=== PATIENT | male | born 1990 | race Hispanic/Latino ===

== ENCOUNTER 2018-08-09 00:13 | Inpatient (IN) | payer BC ==
[2018-08-09] MEDS ORDERED: Tdap Vaccine 0.5 ml Vial (10-64 yrs) IM ONE ×2 (01:05→01:12)
[2018-08-09] MEDS ORDERED: Lidocaine 1.5%-Epinephrine 1:200,000 5 ML AMP IJ STA (01:16)
[2018-08-09] MEDS ORDERED: Lidocaine 1% w Epi 1:100,000 Inj ONE (01:24)
[2018-08-09] MEDS ORDERED: Lidocaine 1% w Epi 1:100,000 Inj IJ STA (01:27)
--- NOTE | 2018-08-09 01:36 | ED PDOC ---
HPI: Wound Care - HPI Time Seen by Provider: 08/09/18 00:45 Chief Complaint (Nursing): Psychiatric Evaluation Chief Complaint (Provider): psych eval History Per: Patient, EMS History Of Present Illness: 27 y/o male brought in by EMS for psych evaluation. Patient admits to drinking alcohol tonight; states he used a razor blade to cut his forearm and that it was "premeditated". Patient states this is not the first time he has done this. HPI limited due to patient's current state Past Medical History Reviewed: Historical Data, Nursing Documentation, Vital Signs Vital Signs: Last Vital Signs Temp 98.0 F 08/09/18 00:15 Pulse 122 H 08/09/18 00:15 Resp 16 08/09/18 00:15 BP 160/104 H 08/09/18 00:15 Pulse Ox 100 08/09/18 00:15 - Medical History PMH: Anxiety, Depression - Family History Family History: States: No Known Family Hx - Home Medications Home Medications: Ambulatory Orders Medication Instructions Recorded Desvenlafaxine [Desvenlafaxine ER] 50 mg PO DAILY 08/09/18 Dextroamphetamine/Amphetamine 15 mg PO BID 08/09/18 [Adderall 15 mg Tablet] Paroxetine HCl [Paxil] 40 mg PO DAILY 08/09/18 - Allergies Allergies/Adverse Reactions: Allergies Allergy/AdvReac Type Severity Reaction Status Date / Time No Known Allergies Allergy Verified 08/09/18 00:14 Review of Systems ROS Statement: Except As Marked, All Systems Reviewed And Found Negative Musculoskeletal: Positive for: Arm Pain (left forearm) Psych: Positive for: Depression, Suicidal ideation Physical Exam - Reviewed Nursing Documentation Reviewed: Yes Vital Signs Reviewed: Yes - Physical Exam Appears: Positive for: Well, Non-toxic, No Acute Distress Head Exam: Positive for: ATRAUMATIC, NORMAL INSPECTION, NORMOCEPHALIC Skin: Positive for: Normal Color Eye Exam: Positive for: Normal appearance ENT: Positive for: Normal ENT Inspection Cardiovascular/Chest: Positive for: Regular Rate, Rhythm Respiratory: Positive for: Normal Breath Sounds Pulses-Radial (L): 2+ Pulses-Radial (R): 2+ Gastrointestinal/Abdominal: Positive for: Normal Exam Back: Positive for: Normal Inspection Extremity: Positive for: Normal ROM, Capillary Refill (<3 sec b/l UE), Other (5.5cm deep laceration volar left forearm, + extensor muscle exposed, intact. FROM distal left hand digits, sensation intact) Neurological/Psych: Positive for: Awake, Alert, Oriented (x3) - Laboratory Results Result Diagrams: 08/09/18 02:16 08/09/18 02:16 - ECG O2 Sat by Pulse Oximetry: 100 - Progress ED Course And Treament: -1:1 -cbc -cmp -alcohol -urine drug screen -urinalysis -wound care -IV unasyn -Adacel IM Procedure: Wound Repair - Time Performed Time Performed: 02:00 - Time Out Time Out: Side verified, Site verified, Patient ID confirmed, Sterile procedures obs. - Consent Obtained Consent obtained: Verbal - Performed by Performed by: Mid-level Provider - Indications Indication(s):: Laceration - Location Location:: Left, Volar, Forearm Shape:: Linear Dimensions Length cm: 5.5cm Dimensions width cm: 2cm Depth:: Muscle - Anesthetic Technique Anesthetic Technique: Topical Local/Regional Anesthetic:: Lidocaine 1% w/epi - Irrigated Irrigated with ml of normal saline: 500mL - Complexity Complexity:: Intermediate (2 layer) - Wound repair method Sutures:: # (13 (3 internal, 10 external)), Size (5'0 internal, 4'0 external), Type (fast absorbing plain gut internal, prolene external), Technique (interrupted) - Muscle repiar layer closed with Muscle repair layer closed with:: Wound well approximated, Abx ointment applied, Dressing applied, Tetanus ordered - Patient tolerated procedure Patient Tolerated Procedure:: Well (patient advised suture removal 10 days) Disposition - Clinical Impression Clinical Impression: Suicide attempt, Alcohol intoxication, Forearm laceration - Disposition Disposition Time: 05:00 Condition: STABLE Additional Instructions: Suture removal 10 days Forms: TIME PLUS Q ([employer]) Patient Signed Over To: Xu Soto Handoff Comments: pending crisis eval
[2018-08-09 02:19] LABS: BASO % 0.2 % (0.0-2.0); EOS % 0.1 % (0.0-4.0); HEMOGLOBIN 14.7 g/dL (12.0-18.0); LYMPH # 2.2 K/uL (1.0-4.3); LYMPH % 16.8 % (20.0-40.0); MEAN CELL VOLUME 90.5 fl (80.0-94.0); MEAN CORPUSCULAR HGB CONC 33.1 g/dL (33.0-37.0); MEAN PLATELET VOLUME 9.4 fl (7.2-11.7); MONO # 0.7 K/uL (0.0-0.8); MONO % 5.5 % (0.0-10.0); NEUT # 10.2 K/uL (1.8-7.0); NEUT % 77.4 % (50.0-75.0); RBC 4.91 Mil/uL (4.40-5.90); RED CELL DISTRIBUTION WIDTH 12.4 % (11.5-14.5); WHITE BLOOD COUNT 13.2 K/uL (4.8-10.8)
[2018-08-09 02:25] LABS: INR 1.1; PROTHROMBIN TIME 12.4 Seconds (9.8-13.1)
[2018-08-09 02:26] LABS: URINE BILIRUBIN NEGATIVE (NEGATIVE); URINE BLOOD NEGATIVE (NEGATIVE); URINE CLARITY CLEAR (Clear); URINE COLOR STRAW (YELLOW); URINE GLUCOSE (UA) NEG (NEGATIVE); URINE LEUKOCYTE ESTERASE NEG Leu/uL (Negative); URINE PROTEIN NEGATIVE (NEGATIVE); URINE UROBILINOGEN 0.2-1.0 mg/dL (0.2-1.0)
[2018-08-09 02:28] LABS: PARTIAL THROMBOPLASTIN TIME 29.4 Seconds (25.6-37.1)
[2018-08-09 02:29] LABS: ALB/GLOB RATIO 1.4 (1.0-2.1); ALBUMIN 5.1 g/dL (3.5-5.0); ALT/SGPT 92 U/L (21-72); AST/SGOT 63 U/L (17-59); BLOOD UREA NITROGEN 15 mg/dl (9-20); CALCIUM 9.1 mg/dL (8.4-10.2); GFR NON-AFRICAN AMERICAN > 60
[2018-08-09 02:46] LABS: BARBITURATES, UR NEGATIVE (NEGATIVE); BENZODIAZEPINES, UR NEGATIVE (NEGATIVE); OPIATES, UR NEGATIVE (NEGATIVE); PHENCYCLIDINE, UR NEGATIVE (NEGATIVE)
--- NOTE | 2018-08-09 04:54 | ED PDOC ---
- Laboratory Results Result Diagrams: 08/09/18 02:16 08/09/18 02:16 Lab Results: PT 12.4 Seconds (9.8-13.1) 08/09/18 02:16 INR 1.1 08/09/18 02:16 APTT 29.4 Seconds (25.6-37.1) 08/09/18 02:16 Total Bilirubin 0.4 mg/dl (0.2-1.3) 08/09/18 02:16 AST 63 U/L (17-59) H 08/09/18 02:16 ALT 92 U/L (21-72) H 08/09/18 02:16 Alkaline Phosphatase 64 U/L (38-126) 08/09/18 02:16 Total Protein 8.8 G/DL (6.3-8.2) H 08/09/18 02:16 Albumin 5.1 g/dL (3.5-5.0) H 08/09/18 02:16 Globulin 3.7 gm/dL (2.2-3.9) 08/09/18 02:16 Albumin/Globulin Ratio 1.4 (1.0-2.1) 08/09/18 02:16 Urine Color Straw (YELLOW) 08/09/18 02:19 Urine Clarity Clear (Clear) 08/09/18 02:19 Urine pH 6.0 (5.0-8.0) 08/09/18 02:19 Ur Specific [place] 1.006 (1.003-1.030) 08/09/18 02:19 Urine Protein Negative mg/dL (NEGATIVE) 08/09/18 02:19 Urine Glucose (UA) Neg mg/dL (NEGATIVE) 08/09/18 02:19 Urine Ketones Negative mg/dL (NEGATIVE) 08/09/18 02:19 Urine Blood Negative (NEGATIVE) 08/09/18 02:19 Urine Nitrate Negative (NEGATIVE) 08/09/18 02:19 Urine Bilirubin Negative (NEGATIVE) 08/09/18 02:19 Urine Urobilinogen 0.2-1.0 mg/dL (0.2-1.0) 08/09/18 02:19 Ur Leukocyte Esterase Neg Alon/uL (Negative) 08/09/18 02:19 Urine RBC (Auto) < 1 /hpf (0-3) 08/09/18 02:19 Urine Microscopic WBC < 1 /hpf (0-5) 08/09/18 02:19 - ECG O2 Sat by Pulse Oximetry: 100 Medical Decision Making Medical Decision Making: signout from dana maya pending crisis eval per crisis can admit for depression under Dr oropeza Disposition - Clinical Impression Clinical Impression: Suicide attempt, Alcohol intoxication, Forearm laceration - POA Present On Arrival: None - Disposition Disposition: Admitted as In-Patient Disposition Time: 05:30 Condition: STABLE
[2018-08-09 06:23] VITALS: O2SAT 95
[2018-08-09] MEDS ORDERED: DiphenhydrAMINE 50 mg/ml Inj IM PRN (06:37)
[2018-08-09] MEDS ORDERED: Alum-Mag Hydrox-Simethicone Susp (30 mL) PO PRN (06:37)
[2018-08-09] MEDS ORDERED: Magnesium Hydroxide Susp 30 ml UD PO PRN (06:37)
--- NOTE | 2018-08-09 06:57 | PCM.BM ---
<Shaina So - Last Filed: 08/09/18 06:54> Treatment Plan Problems - Problems identified on initial assessmt Self Harm Date Initiated: 08/09/18 Time Initiated: 06:55 Assessment reference: NA Status: Active Ineffective coping Date Initiated: 08/09/18 Time Initiated: 06:55 Assessment reference: NA Status: Active Treatment assets and liabiliti Patient Assests: cooperative, educated, ADL independent, physically healthy, good support system, negotiates basic needs, cognitively intact - Milieu Protocol Maintain good personal hygiene: daily Encourage regular showers, other Remind patient to perform daily oral care (prn), other Assist patient to perform ADL's (prn) Conduct patient checks and document Observation sheet: Q15 minutes Maintain personal safety: every shift Educate patient to report safety concerns to staff, every shift Monitor environment for contraband/sharps Medication safety: Monitor for expected outcome, potential side effects: every shift, Assess barriers to learning: every shift, Assess readiness for medication education: every shift <Jose David Mix - Last Filed: 08/12/18 09:01> Family Contact Family involvement: Family/SO is involved Family contact: Patient agrees to contact, Family has been contacted by patient, Telephone contact initiated by staff Family contact name: Yasir - Father, Eleazar - Brother Family contacted how many times per week?: 4 Family contact comment: Side Laster Tack met with pt and his father, Yasir, to discuss short-term disability and forms that pt's father brought in for pt's job. Side Laster Tack explained short-term disability and that it is too soon to know if pt will need an extended absence from work. Pt appeared brighter when interacting with his father. Side Laster Tack gave general updates on treatment and length of stay on the unit. Side Laster Tack to meet more extensively with pt and his family on 08/12. - Goals for Treatment Patient goals for treatment: Pt unable to verbalize goals for treatment at this time due to severe depression and fatigue. Discharge/Continuing Care - Education Needs Education Needs: Patient Medication, Patient Diagnosis/Disease Process, Patient Coping Skills, Patient Aftercare Safety Plan - Discharge Discharge Criteria: Tolerates medication w/o severe side effects, Free of Suicidal thoughts, Normal sleep pattern, Ability to care for self, Reduction of target symptoms Discharge to:: Home, With Family - Treatment Team Participation Patient/Family/SO Statement: 08/12/18 09:03 Pt was seen in treatment team on 08/10/18. Pt reported he was "fine." Pt was vague and guarded during treatment team and reported that "school, work and social life" contributed to his depression. Pt reported "good" sleep and Dr. Carroll discussed cross tapering of Paxil and Wellbutrin. Pt denied side-effects at this time. Pt denied current SI/HI and AVT Hallucinations. Pt is oriented X4. Discussed with Family/SO: Yes Was Patient/Family/SO present at Treatment Team Meeting: Yes <Francisco Carroll - Last Filed: 08/12/18 14:09> - Diagnosis (1) Major depression Status: Acute Interventions: start wellbutrin, psychotherapy 08/12/18 14:09
--- NOTE | 2018-08-09 15:40 | PCM.PSYCH ---
Initial Psychiatric Evaluation - Initial Psychiatric Evaluation Type of Admission: Voluntary Legal Status: Capacity Chief Complaint (in patient's own words): I wanted to end my life History of Present Illness and Precipitating Events: pt is 27ys old male with previous diagnosis of depression brought to ER after suicidal attempt by cutting his wrist , resulting in a 5cms deep cut , requiring ten sutures pt has been increasingly depressed and overwhelmed by school and work, pt was feeling increasingly anxious and reported feeling as if he could not meet the high standards that he has set for himself and wanted his father to see him at, pt reported feeling guilty, worthless, hopeless and helpless, poor motivation and low energy stated on day of evaluation felt his life has no meaning and wanted to end it all pt on unit presenting with poor eye contact, under productive and soft speech, depressed mood and tearfull affect, continues to report passive suicidal ideation stating he feels his life is worthless, denied active thoughts of self harm on the unit denied perceptual disturbances, denied homicidal ideation Current Medications: Active Medications Generic Name Dose Route Start Last Admin Trade Name Freq PRN Reason Stop Dose Admin Acetaminophen 650 mg 08/09/18 06:37 Tylenol 325mg Tab PO Q4 PRN pain level 4-7 Al Hydrox/Mg Hydrox/Simethicone 30 ml 08/09/18 06:37 Maalox Plus 30 Ml PO Q4 PRN Dyspepsia Bupropion HCl 100 mg 08/10/18 09:00 Wellbutrin PO DAILY BIANCA Diphenhydramine HCl 50 mg 08/09/18 06:37 Benadryl IM Q6 PRN Extrapyramidal S/S Unable PO Diphenhydramine HCl 50 mg 08/09/18 06:37 Benadryl PO Q6 PRN Extrapyramidal Symptoms Diphenhydramine HCl 50 mg 08/09/18 06:40 Benadryl PO HS PRN Sleep Haloperidol 5 mg 08/09/18 06:37 Haldol PO Q4 PRN Agitation Haloperidol Lactate 5 mg 08/09/18 06:37 Haldol IM Q4 PRN Agitation, Unable to Take PO Lorazepam 2 mg 08/09/18 06:37 Ativan IM Q8H PRN Anxiety/Agitation,Unable PO Lorazepam 1 mg 08/09/18 06:37 Ativan PO Q8H PRN Anxiety/Agitation Magnesium Hydroxide 30 ml 08/09/18 06:37 Milk Of Magnesia PO HS PRN Constipation Paroxetine HCl 20 mg 08/09/18 22:00 Paxil PO HS BIANCA Past Psychiatric History - Past Psychiatric History Explanation of prior treatment: no hx of previous hospitalizations hx of receiving therapy hx of cutting History of ETOH/Drug Use: occasional alcohol use Pertinent Medical Hx (Current Medical&Sleep Prob, Allergies): Allergies Allergy/AdvReac Type Severity Reaction Status Date / Time No Known Allergies Allergy Verified 08/09/18 00:14 Desvenlafaxine [Desvenlafaxine ER] 50 mg PO DAILY 08/09/18 Dextroamphetamine/Amphetamine [Adderall 15 mg Tablet] 15 mg PO BID 08/09/18 Paroxetine HCl [Paxil] 40 mg PO DAILY 08/09/18 Mental Status Examination - Personal Presentation Personal Presentation: Looks stated age - Affect Affect: Constricted - Motor Activity Motor Activity: Psychomotor Retardation - Reliability in Providing Information Reliability in Providing Information: Fair - Speech Speech: Relevant - Mood Mood: Depressed, Anxious - Formal Thought Process Formal Thought Process: Circumstantial - Obsessions/Compulsions Obsessions: No Compulsions: No - Cognitive Functions Orientation: Person, Place, Situation Judgement: Imparied, as evidence by: Poor judgement - Risk Risk: Suicidal, Diminished functioning - Strength & Assets Inventory Strength & Assets Inventory: Family support, Education - Limitations Additional comments: partial compliance DSM 5 DX - DSM 5 DSM 5 Diagnosis: major depression recurrent severe - Recommended/Plan of Treatment Treatment Recommendations and Plan of Treatment: start wellbutrin 75mg increas to 100mg daily decrease paxil to 20mg with plan to discontinue cbt group and supportive therapy
--- NOTE | 2018-08-09 17:34 | CARD ---
APPROVED REPORT Date of service: 08/09/2018 EKG Measurement Heart [id number] <Conclusion> Normal sinus rhythm Normal ECG
--- NOTE | 2018-08-09 17:57 | CP.PCM.CON ---
History of Present Illness - History of Present Illness History of Present Illness: 27 yo male with history of depression admitted to psyche unit because of suicidal attempt. Review of Systems - Review of Systems All systems: reviewed and no additional remarkable complaints except (aside from those mentioned above, 12 point system review were negative by me) Past Patient History - Tetanus Immunizations Tetanus Immunization: Unknown - Past Social History Smoking Status: Light Smoker < 10 Cigarettes Daily Chewing Tobacco Use: No Cigar Use: No Alcohol: < 2 Drinks/Day Drugs: Denies - CARDIAC Hx Cardiac Disorders: No Hx Hypertension: No - PULMONARY Hx Tuberculosis: No - NEUROLOGICAL HX Cerebrovascular Accident: No Hx Seizures: No - HEENT Hx HEENT Problems: No - RENAL Hx Chronic Kidney Disease: No - ENDOCRINE/METABOLIC Hx Endocrine Disorders: No - HEMATOLOGICAL/ONCOLOGICAL Hx Blood Disorders: No Hx Cancer: No Hx Human Immunodeficiency Virus (HIV): No - MUSCULOSKELETAL/RHEUMATOLOGICAL Hx Musculoskeletal Disorders: No - GASTROINTESTINAL Hx Gastrointestinal Disorders: No - GENITOURINARY/GYNECOLOGICAL Hx Genitourinary Disorders: No Hx Sexually Transmitted Disorders: No - PSYCHIATRIC Hx Sexual Abuse: No Hx Substance Use: No - SURGICAL HISTORY Hx Surgeries: No - ANESTHESIA Hx Anesthesia: No Meds Allergies/Adverse Reactions: Allergies Allergy/AdvReac Type Severity Reaction Status Date / Time No Known Allergies Allergy Verified 08/09/18 00:14 - Medications Medications: Current Medications Acetaminophen (Tylenol 325mg Tab) 650 mg PO Q4 PRN PRN Reason: pain level 4-7 Al Hydrox/Mg Hydrox/Simethicone (Maalox Plus 30 Ml) 30 ml PO Q4 PRN PRN Reason: Dyspepsia Bupropion HCl (Wellbutrin) 100 mg PO DAILY BIANCA Diphenhydramine HCl (Benadryl) 50 mg IM Q6 PRN PRN Reason: Extrapyramidal S/S Unable PO Diphenhydramine HCl (Benadryl) 50 mg PO Q6 PRN PRN Reason: Extrapyramidal Symptoms Diphenhydramine HCl (Benadryl) 50 mg PO HS PRN PRN Reason: Sleep Haloperidol (Haldol) 5 mg PO Q4 PRN PRN Reason: Agitation Haloperidol Lactate (Haldol) 5 mg IM Q4 PRN PRN Reason: Agitation, Unable to Take PO Lorazepam (Ativan) 2 mg IM Q8H PRN PRN Reason: Anxiety/Agitation,Unable PO Lorazepam (Ativan) 1 mg PO Q8H PRN PRN Reason: Anxiety/Agitation Magnesium Hydroxide (Milk Of Magnesia) 30 ml PO HS PRN PRN Reason: Constipation Paroxetine HCl (Paxil) 20 mg PO HS BIANCA Trazodone HCl (Desyrel) 100 mg PO HS BIANCA Physical Exam - Constitutional Appears: No Acute Distress - Head Exam Head Exam: ATRAUMATIC - Eye Exam Eye Exam: absent: Scleral icterus - ENT Exam ENT Exam: Mucous Membranes Moist - Neck Exam Neck exam: Negative for: Meningismus - Respiratory Exam Respiratory Exam: absent: Rales, Rhonchi, Wheezes, Respiratory Distress - Cardiovascular Exam Cardiovascular Exam: REGULAR RHYTHM, +S1, +S2 - GI/Abdominal Exam GI & Abdominal Exam: Soft. absent: Tenderness - Rectal Exam Rectal Exam: Deferred - Neurological Exam Neurological exam: Alert, Oriented x3 - Psychiatric Exam Psychiatric exam: Normal Affect - Skin Skin Exam: Dry, Intact Results - Vital Signs Recent Vital Signs: Last Vital Signs Temp 98.2 F 08/09/18 09:00 Pulse 89 08/09/18 09:00 Resp 18 08/09/18 11:37 BP 118/73 08/09/18 09:00 Pulse Ox 95 08/09/18 06:22 - Labs Result Diagrams: 08/09/18 02:16 08/09/18 02:16 Labs: Laboratory Results - last 24 hr 08/09/18 08/09/18 08/09/18 02:16 02:16 02:16 WBC 13.2 H RBC 4.91 Hgb 14.7 Hct 44.4 MCV 90.5 MCH 30.0 MCHC 33.1 RDW 12.4 Plt Count 248 MPV 9.4 Neut % (Auto) 77.4 H Lymph % (Auto) 16.8 L [place] % (Auto) 5.5 Eos % (Auto) 0.1 Baso % (Auto) 0.2 Neut # (Auto) 10.2 H Lymph # (Auto) 2.2 [place] # (Auto) 0.7 Eos # (Auto) 0.0 Baso # (Auto) 0.0 PT 12.4 INR 1.1 APTT 29.4 Sodium 135 Potassium 3.4 L Chloride 95 L Carbon Dioxide 18 L Anion Gap 25 H BUN 15 Creatinine 1.0 Est GFR ( Amer) > 60 Est GFR (Non-Af Amer) > 60 Random Glucose 97 Calcium 9.1 Total Bilirubin 0.4 AST 63 H ALT 92 H Alkaline Phosphatase 64 Total Protein 8.8 H Albumin 5.1 H Globulin 3.7 Albumin/Globulin Ratio 1.4 Urine Color Urine Clarity Urine pH Ur Specific [place] Urine Protein Urine Glucose (UA) Urine Ketones Urine Blood Urine Nitrate Urine Bilirubin Urine Urobilinogen Ur Leukocyte Esterase Urine RBC (Auto) Urine Microscopic WBC Urine Opiates Screen Urine Methadone Screen Ur Barbiturates Screen Ur Phencyclidine Scrn Ur Amphetamines Screen U Benzodiazepines Scrn U Oth Cocaine Metabols U Cannabinoids Screen Alcohol, Quantitative 197 H 08/09/18 08/09/18 02:19 02:19 WBC RBC Hgb Hct MCV MCH MCHC RDW Plt Count MPV Neut % (Auto) Lymph % (Auto) [place] % (Auto) Eos % (Auto) Baso % (Auto) Neut # (Auto) Lymph # (Auto) [place] # (Auto) Eos # (Auto) Baso # (Auto) PT INR APTT Sodium Potassium Chloride Carbon Dioxide Anion Gap BUN Creatinine Est GFR ( Amer) Est GFR (Non-Af Amer) Random Glucose Calcium Total Bilirubin AST ALT Alkaline Phosphatase Total Protein Albumin Globulin Albumin/Globulin Ratio Urine Color Straw Urine Clarity Clear Urine pH 6.0 Ur Specific [place] 1.006 Urine Protein Negative Urine Glucose (UA) Neg Urine Ketones Negative Urine Blood Negative Urine Nitrate Negative Urine Bilirubin Negative Urine Urobilinogen 0.2-1.0 Ur Leukocyte Esterase Neg Urine RBC (Auto) < 1 Urine Microscopic WBC < 1 Urine Opiates Screen Negative Urine Methadone Screen Negative Ur Barbiturates Screen Negative Ur Phencyclidine Scrn Negative Ur Amphetamines Screen Positive H U Benzodiazepines Scrn Negative U Oth Cocaine Metabols Negative U Cannabinoids Screen Negative Alcohol, Quantitative Assessment & Plan (1) Suicide attempt Status: Acute Comment: psyche is managing
--- NOTE | 2018-08-10 15:02 | PCM.PYCHPN ---
Psychiatric Progress Note - Psychiatric Progress Note Patient seen today, length of contact: pt evaluated discussed with team chart reviewed Patient Chief Complaint: I feel worthless at times Problems Identified/Issues Discussed: pt evaluated with treatment team, presenting with depressed mood and affect, under productive speech, poor eye contact, tearful at times, reported feeling overwhelmed, continues to report passive suicidal ideation stating feeling his life is worthless, with poor energy and anhedonia pt denied active thoughts of self harm on the unit denied perceptual disturbances Medical Problems: no hx of previous hospitalizations hx of receiving therapy hx of cutting DSM 5 Symptoms Update: major depression recurrent severe without psychotic features Medication Change: Yes (increase wellbutrin) Medical Record Reviewed: Yes Mental Status Examination - Cognitive Function Orientation: Person, Place, Situation Memory: Intact Attention: WNL Concentration: Poor Association: WNL Fund of Knowledge: WNL Decription of patient's judgement and insights: partial insight fair judgment - Mood Mood: Depressed, Anxious - Affect Affect: Constricted - Speech Speech: Soft - Formal Thought Process Formal Thought Process: Circumstantial - Suicidal Ideation Suicidal Ideation: Yes - Homicidal Ideation Homicidal Ideation: No Goal/Treatment Plan - Goal/Treatment Plan Need for Continued Stay: Severe depression anxiety, Discharge may exacerbated symptoms Progress Toward Problem(s) and Goals/Treatment Plan: increase wellbutrin to 150mg daily paxil to 20mg with plan to discontinue cbt group and supportive therapy
[2018-08-11] MEDS: buPROPion SR 150 MG TABLET PO SCH (09:00)
[2018-08-11] MEDS ORDERED: buPROPion SR 150 MG TABLET PO SCH (09:00)
--- NOTE | 2018-08-11 12:39 | PCM.PYCHPN ---
Psychiatric Progress Note - Psychiatric Progress Note Patient seen today, length of contact: pt evaluated discussed with team chart reviewed Patient Chief Complaint: I still feel tired Problems Identified/Issues Discussed: pt seen in bed, continues to be guarded with under productive speech, depressed mood and affect, low energy and poor motivation, no reported side effects with increasing wellbutrin, pt has limited interaction with staff and other patients, denied current active thoughts of self harm denied perceptual disturbances Medical Problems: no hx of previous hospitalizations hx of receiving therapy hx of cutting DSM 5 Symptoms Update: major depression recurrent severe Medication Change: No Medical Record Reviewed: Yes Mental Status Examination - Cognitive Function Orientation: Person, Place, Situation Memory: Intact Attention: WNL Concentration: Poor Association: WNL Fund of Knowledge: WNL Decription of patient's judgement and insights: partial insight fair judgment - Mood Mood: Depressed, Anxious - Affect Affect: Constricted - Speech Speech: Soft - Formal Thought Process Formal Thought Process: Circumstantial - Suicidal Ideation Suicidal Ideation: Yes - Homicidal Ideation Homicidal Ideation: No Goal/Treatment Plan - Goal/Treatment Plan Need for Continued Stay: Severe depression anxiety, Discharge may exacerbated symptoms Progress Toward Problem(s) and Goals/Treatment Plan: wellbutrin 150mg daily decrease paxil to 10mg with plan to discontinue cbt group and supportive therapy
[2018-08-12] MEDS: buPROPion SR 150 MG TABLET PO SCH (08:28)
--- NOTE | 2018-08-12 14:16 | PCM.PYCHPN ---
Psychiatric Progress Note - Psychiatric Progress Note Patient seen today, length of contact: pt evaluated discussed with team chart reviewed Patient Chief Complaint: I feel less depressed but I have no energy Problems Identified/Issues Discussed: pt seen in bed, reported feeling less depressed, pt however continues to be guarded with under productive speech,dysphoric affect , low energy and poor motivation, no reported side effects with increasing wellbutrin, pt has limited interaction with staff and other patients, denied current active thoughts of self harm denied perceptual disturbances Medical Problems: no hx of previous hospitalizations hx of receiving therapy hx of cutting DSM 5 Symptoms Update: major depression recurrent severe without psychotic features Medication Change: Yes (discontinue paxil) Medical Record Reviewed: Yes Mental Status Examination - Cognitive Function Orientation: Person, Place, Situation Memory: Intact Attention: WNL Concentration: Poor Association: WNL Fund of Knowledge: WNL Decription of patient's judgement and insights: partial insight fair judgment - Mood Mood: Depressed, Anxious - Affect Affect: Constricted - Speech Speech: Soft - Formal Thought Process Formal Thought Process: Circumstantial - Suicidal Ideation Suicidal Ideation: Yes - Homicidal Ideation Homicidal Ideation: No Goal/Treatment Plan - Goal/Treatment Plan Need for Continued Stay: Severe depression anxiety, Discharge may exacerbated symptoms Progress Toward Problem(s) and Goals/Treatment Plan: wellbutrin 150mg daily discontinue paxil cbt group and supportive therapy
[2018-08-13] MEDS: buPROPion SR 150 MG TABLET PO SCH (08:29)
--- NOTE | 2018-08-13 14:49 | PCM.PYCHPN ---
Psychiatric Progress Note - Psychiatric Progress Note Patient seen today, length of contact: pt evaluated discussed with team chart reviewed Patient Chief Complaint: I always struggle to ask for help Problems Identified/Issues Discussed: pt seen in day room, less isolative, interacting more with staff, pt on interviewing him continues to have poor eye contact, presenting with tearful affect when he talks about how he was contemplating suicide for almost a month, CBT provided , discussed with pt coping skills with stress, pt continues to report anhedonia and low energy, discussed increasing dose of wellbutrin, no reported side effects pt denied current active thoughts of self harm on the unit denied perceptual disturbances Medical Problems: no hx of previous hospitalizations hx of receiving therapy hx of cutting DSM 5 Symptoms Update: major depression recurrent severe Medication Change: Yes (increase wellbutrin) Medical Record Reviewed: Yes Mental Status Examination - Cognitive Function Orientation: Person, Place, Situation Memory: Intact Attention: WNL Concentration: Poor Association: WNL Fund of Knowledge: WNL Decription of patient's judgement and insights: partial insight fair judgment - Mood Mood: Depressed, Anxious - Affect Affect: Constricted - Speech Speech: Soft - Formal Thought Process Formal Thought Process: Circumstantial - Suicidal Ideation Suicidal Ideation: Yes - Homicidal Ideation Homicidal Ideation: No Goal/Treatment Plan - Goal/Treatment Plan Need for Continued Stay: Severe depression anxiety, Discharge may exacerbated symptoms Progress Toward Problem(s) and Goals/Treatment Plan: increase wellbutrin 200mg daily decrease trazodone to 50mg qhs cbt group and supportive therapy
[2018-08-14] MEDS ORDERED: buPROPion SR 150 MG TABLET PO SCH (09:00)
--- NOTE | 2018-08-14 15:19 | PCM.PYCHPN ---
Psychiatric Progress Note - Psychiatric Progress Note Patient seen today, length of contact: pt evaluated discussed with team chart reviewed Patient Chief Complaint: I had trouble dealing with the break up Problems Identified/Issues Discussed: pt evaluated and treatment plan discussed in length with patient father upon pt consent pt was able to open more with copy writer, discussing the possible triggers of the suicidal attempt, stating he has been suppressing all his emotions and dealing with it by increasing his work load so he would not deal with his emotions, pt tearful when talking about his break up and continues to have grieving emotions CBT provided discussed with pt the possible automatic thoughts he has and ways of challenging them also discussed the importance of intensive therapy as he continues to grieve the loss of his girl friend, pt continues to be depressed dysphoric continues to report feelings of worthlessness , discussed adding abilify to augment the antidepressant pt denied current active thoughts of self harm on the unit denied perceptual disturbances Medical Problems: no hx of previous hospitalizations hx of receiving therapy hx of cutting DSM 5 Symptoms Update: major depression recurrent severe without psychotic features Medication Change: Yes (start abilify) Medical Record Reviewed: Yes Mental Status Examination - Cognitive Function Orientation: Person, Place, Situation Memory: Intact Attention: WNL Concentration: Poor Association: WNL Fund of Knowledge: WNL Decription of patient's judgement and insights: partial insight fair judgment - Mood Mood: Depressed, Anxious - Affect Affect: Constricted - Speech Speech: Soft - Formal Thought Process Formal Thought Process: Circumstantial - Suicidal Ideation Suicidal Ideation: Yes - Homicidal Ideation Homicidal Ideation: No Goal/Treatment Plan - Goal/Treatment Plan Need for Continued Stay: Severe depression anxiety, Discharge may exacerbated symptoms Progress Toward Problem(s) and Goals/Treatment Plan: wellbutrin 200mg daily trazodone to 50mg qhs start abilify 2mg qhs cbt group and supportive therapy
--- NOTE | 2018-08-15 14:19 | PCM.PYCHPN ---
Psychiatric Progress Note - Psychiatric Progress Note Patient seen today, length of contact: pt evaluated discussed with team chart reviewed Patient Chief Complaint: I worry about what I will find in my text messages Problems Identified/Issues Discussed: pt evaluated , pt has been visible in day room, observed more interactive with staff,no changes in appetite , during evaluation, better eye contact, continues to be tearful at times , reported having a family meeting yesterday was very helpful in conveying certain feelings and thoughts to his father and brother that he could not have done on his own, discussed with patient expected challenges on discharge, he reported feeling worried how he will be perceived by his friends, CBT provided discussed with patient in length the stigma of mental illness , the need to avoid the overvalued ideas of other people opinion about him and its possible impact on his life, discussed with patient starting a list of possible coping skills that he would find helpful on discharge to deal with his depression pt reported early insomnia with possible withdrawal symptoms related to discontinuing paxil, discussed increasing dose of abilify and trazodone , no reported side effects pt denied current active thoughts of self harm on the unit denied perceptual disturbances Medical Problems: no hx of previous hospitalizations hx of receiving therapy hx of cutting DSM 5 Symptoms Update: major depression recurrent severe without psychotic features Medication Change: Yes (increase abilify) Medical Record Reviewed: Yes Mental Status Examination - Cognitive Function Orientation: Person, Place, Situation Memory: Intact Attention: WNL Concentration: WNL Association: WNL Fund of Knowledge: WN Decription of patient's judgement and insights: partial insight fair judgment - Mood Mood: Depressed, Anxious - Affect Affect: Constricted - Speech Speech: Soft - Formal Thought Process Formal Thought Process: Circumstantial - Suicidal Ideation Suicidal Ideation: No - Homicidal Ideation Homicidal Ideation: No Goal/Treatment Plan - Goal/Treatment Plan Need for Continued Stay: Severe depression anxiety, Discharge may exacerbated symptoms Progress Toward Problem(s) and Goals/Treatment Plan: wellbutrin 200mg daily increase trazodone to 75mg qhs increase abilify 5mg qhs cbt group and supportive therapy
[2018-08-16 09:23] VITALS: RESP 18
--- NOTE | 2018-08-16 15:15 | PCM.PYCHPN ---
Psychiatric Progress Note - Psychiatric Progress Note Patient seen today, length of contact: pt evaluated discussed with team chart reviewed Patient Chief Complaint: I would like to see myself working on [employer] Problems Identified/Issues Discussed: pt evaluated , and treatment plan discussed with father upon patient consent [phone] pt reported improved sleep with increase in trazodone, also noted improved mood and concentration with wellbutrin, discussed with pt plans on discharge, reported feeling hopeful to get back to school, setting his goals to work on [employer]., pt again tearful when he spoke about looking forward to have a girl friend on further discussion stated he continues to grieve the loss of his girl friend a year ago, confirmed to patient that this is a normal feeling and that he needs to allow himself to grieve the loss rather than suppressing his emotions, pt more interactive during the interview , improved eye contact also observed interacting with other patients , sitting in day room, attending groups, no current changes in sleep or appetite pt denied current active thoughts of self harm denied perceptual disturbances , no reported side effects of the medications Medical Problems: no hx of previous hospitalizations hx of receiving therapy hx of cutting DSM 5 Symptoms Update: major depression Medication Change: No Medical Record Reviewed: Yes Mental Status Examination - Cognitive Function Orientation: Person, Place, Situation Memory: Intact Attention: WNL Concentration: WNL Association: WNL Fund of Knowledge: WNL Decription of patient's judgement and insights: partial insight fair judgment - Mood Mood: Anxious - Affect Affect: Constricted - Speech Speech: Appropriate - Formal Thought Process Formal Thought Process: No Impairment - Suicidal Ideation Suicidal Ideation: No - Homicidal Ideation Homicidal Ideation: No Goal/Treatment Plan - Goal/Treatment Plan Need for Continued Stay: Severe depression anxiety, Discharge may exacerbated symptoms Progress Toward Problem(s) and Goals/Treatment Plan: wellbutrin 200mg daily trazodone 75mg qhs abilify 5mg qhs cbt group and supportive therapy pt scheduled to [facility] on monday08/20/18
[2018-08-17 13:56] VITALS: BP 122/83; PULSE 79; TEMP 96.1
--- NOTE | 2018-08-17 17:41 | PCM.PYCHDC ---
Mental Status Examination - Mental Status Examination Orientation: Person, Place, Situation, Time Memory: Intact Mood: Neutral Affect: Broad Speech: Appropriate Attention: WNL Concentration: WNL Association: WNL Fund of Knowledge: WNL Formal Thought Process: No Impairment Description of patient's judgement and insight: improved Suicidal Ideation: No Current Homicidal Ideation?: No Discharge Summary - Discharge Note Reason for Hospitalization: presented with suicide attempt lacerated wrist Laboratory Data: positive amphetamine and etoh Consultations:: List each consultation separately and include: 1. Reason for request. 2. Findings. 3. Follow-up Consultations: pt seen by hospitalist Summary of Hospital Course include:: 1. Description of specific treatment plan utilized for patients during their course of treatmen. 2. Summarize the time- course for resolution of acute symptoms and/or regressed behaviors. 3. Describe issues identified and worked on during hospitalization. 4. Describe medication utilized. 5. Describe medical problems identified and treated. 6. Reassessment of suicide risk Summary of Hospital Course: admitted voluntary basis, admitted through er to [facility], voluntary basis, presented with suicidal attempt laceration in left wrist lacerations placed in er, pt to follow up with family physician for removal (review possible s/s infection notify family physican) context of etoh and amphetamine use. pt was evaluated by team and seen by hospitalist. medications were adjusted per clinical status. pt received and participated and received milieu therapy. pt was evaluated by team on an on going basis. team with pt's permission were in contact with pt's family. pt stabilized. discharge planning was arranged by social work. pt to be discharge to live with his parents and prescriptions were given. pt to be discharged per attending psychiatry-dr choi. primary rn to provide discharge teaching. pt discharged off of unit without incident. - Diagnosis (1) Suicide attempt Assessment and Plan: pt was stabilized while on unit, pt was able to meet with team as well as share with team feelings related to lost of girlfriend approx. one year ago. expressed that no longer wants to hurt self admits remorse able to verbalize possible coping, expresses family as leverage, verbalizs desire to continue treatment and is scheduled to start opd [id number]. has family for support. expresses desire to continue school. pt will call 911 or mobile crisis of nearest emergency room Current Visit: Yes Status: Acute (2) Alcohol intoxication Current Visit: Yes Status: Acute (3) Major depression Assessment and Plan: pt begin opd treatment [id number] Current Visit: Yes Status: Chronic (4) Forearm laceration Current Visit: Yes Status: Acute - Final Diagnosis (DSM 5) Condition upon Discharge: STABLE DSM 5: Suicide Attempt-laceration wrist major depression moderate to severe without psychosis polysubstance use: etoh newly in remission amphetamine remission Disposition: HOME/ ROUTINE Follow-up Treatment Plan: opd [id number] Prescriptions/Medication Reconciliation: ARIPiprazole [Abilify] 5 mg PO HS 30 Days #30 tab buPROPion SR [Wellbutrin] 200 mg PO DAILY 30 Days #60 tab traZODone [Desyrel] 75 mg PO HS 30 Days #45 tab - Smoking Cessation Smoking Cessation Medication prescribed: No Reason for not providing: pt deferred - Antipsychotic Medications Pt discharged on 2 or more routine antipsychotic medications: No
== END 2018-08-17 18:30 | disposition home or self-care (01) | DRG 885 ==
LOC: H.ER 00:13 → H.ERHOLD 05:11 → H.PSYCH 06:33
PROVIDERS: ADMIT Psychiatry & Neurology Psychiatry; ATTEND Psychiatry & Neurology Psychiatry
PROC: 0JQH3ZZ Repair Left Lower Arm Subcutaneous Tissue and Fascia, Percutaneous Approach (ICD-10-PCS; principal; 2018-08-09)
PROC: 3E0234Z Introduction of Serum, Toxoid and Vaccine into Muscle, Percutaneous Approach (ICD-10-PCS; 2018-08-09)
PROC: GZ51ZZZ Individual Psychotherapy, Behavioral (ICD-10-PCS; 2018-08-10)
PROC: GZ56ZZZ Individual Psychotherapy, Supportive (ICD-10-PCS; 2018-08-10)
PROC: GZHZZZZ Group Psychotherapy (ICD-10-PCS; 2018-08-13)
DX: F33.2 Major depressive disorder, recurrent severe without psychotic features (principal); R45.851 Suicidal ideations; S51.812A Laceration without foreign body of left forearm, initial encounter; X78.8XXA Intentional self-harm by other sharp object, initial encounter; Y93.9 Activity, unspecified; Y92.9 Unspecified place or not applicable; F10.129 Alcohol abuse with intoxication, unspecified; G47.00 Insomnia, unspecified; F17.210 Nicotine dependence, cigarettes, uncomplicated; Z91.5 Personal history of self-harm; F41.9 Anxiety disorder, unspecified; Z79.899 Other long term (current) drug therapy; F19.10 Other psychoactive substance abuse, uncomplicated; F10.11 Alcohol abuse, in remission; Y90.6 Blood alcohol level of 120-199 mg/100 ml; Z23 Encounter for immunization